=== PATIENT | female | born 1965 | race Two or more races ===

== ENCOUNTER 2019-07-26 08:33 | Day surgery (SDC) | payer MEDICARE, BC ==
[2019-07-26] MEDS ORDERED: Sodium Chloride 0.9% 1,000 ML IV SCH (08:45)
[2019-07-26] MEDS ORDERED: Midazolam 1 MG/ML 2 ML SDV ONE (09:34)
[2019-07-26] MEDS ORDERED: Propofol 200 MG/20 ML SDV ONE (09:34)
[2019-07-26] MEDS ORDERED: fentaNYL 100 MCG/2 ML SDV ONE (09:34)
--- NOTE | 2019-07-26 13:19 | PROC ---
DATE OF PROCEDURE: 07/26/2019 SURGEON: Tj Srivastava MD PROCEDURE: Colonoscopy. PREPROCEDURE DIAGNOSIS: History of colon polyps. POSTPROCEDURE DIAGNOSES: 1. History of colon polyps. 2. Internal and external hemorrhoids. 3. Ascending colon diverticulosis. DESCRIPTION OF PROCEDURE: Risks and goals of the procedure reviewed with the patient, and she gave informed consent to proceed including potential risks of perforation or uncontrolled bleeding requiring surgical intervention. She was brought back to the endoscopy room. Sedation and monitoring provided by the anesthesia service. She was placed in a left lateral decubitus position. Time-out was held to confirm right patient, right side, right procedure. After adequate sedation was achieved, digital rectal examination was performed which was remarkable for external hemorrhoids. No other palpable masses identified. Flexible colonoscope was placed and advanced all the way out through the colon to the cecum. The scope was slowly withdrawn back through the colon out of the cecum. In the ascending colon, she was noted to have scattered diverticulosis. The scope was brought back to the transverse colon and descending colon with no abnormalities identified. She was noted to have anastomosis from previous sigmoid colon resection. The scope was then brought into the rectum, retroflexed, and removed. No masses were identified, but she was noted to have internal hemorrhoids. The scope was then straightened and removed. No other mucosal polyps, masses, or lesions were seen, and the procedure was otherwise completed without complication. Tj Srivastava MD /[id number]
== END 2019-07-26 11:40 | disposition home or self-care (01) ==
LOC: JP.SDS 08:33
PROVIDERS: ATTEND Hospitalist
DX: Z12.11 Encounter for screening for malignant neoplasm of colon (principal); K64.8 Other hemorrhoids; K64.4 Residual hemorrhoidal skin tags; K57.30 Diverticulosis of large intestine without perforation or abscess without bleeding; K21.9 Gastro-esophageal reflux disease without esophagitis; G47.33 Obstructive sleep apnea (adult) (pediatric); E66.01 Morbid (severe) obesity due to excess calories; Z86.010 Personal history of colon polyps; Z88.7 Allergy status to serum and vaccine; Z88.8 Allergy status to other drugs, medicaments and biological substances; Z99.89 Dependence on other enabling machines and devices; Z68.41 Body mass index [BMI] 40.0-44.9, adult
CPT/HCPCS: G0121; J2250; J2704; J3010; J7030

== ENCOUNTER 2019-09-09 08:51 | Day surgery (SDC) | payer MEDICARE, BC ==
[~2019-09-09 08:51] MED LIST: Bacitracin Oint 28.35 GM Tube ONE; Bupivacaine 0.5% 50 ML MDV ONE; Lidocaine 1% with EPINEPHrine 1:100,000 50 ML MDV ONE; Midazolam 1 MG/ML 2 ML SDV ONE; Propofol 200 MG/20 ML SDV ONE; Sodium Chloride 0.9% 1,000 ML IV SCH; ceFAZolin 2 GM in Premix Bag 1 BAG IV ONE; fentaNYL 100 MCG/2 ML SDV ONE
[2019-09-09] MEDS ORDERED: Propofol 200 MG/20 ML SDV ONE ×3 (09:48→10:35)
--- NOTE | 2019-09-09 14:00 | OR ---
DATE OF PROCEDURE: 09/09/2019 SURGEON: Fer Delatorre MD PROCEDURES: Excision of multiple lesions: 1. Right elbow, approximately 3 mm, completely removed. 2. Left lateral leg. 3. Left medial leg. 4. Right Achilles heel area. These are most consistent with lipomas and cysts. COMPLICATIONS: None. MARKETING PERFORMANCE ANALYST: None. ANESTHESIA: MAC/local. PREOPERATIVE DIAGNOSIS: Cysts/lipomas. POSTOPERATIVE DIAGNOSIS: Cysts/lipomas. RISKS: Risks, benefits, alternatives, and limitations including, but not limited to infection, bleeding, chronic wounds, chronic pain, and injury to associated structures were explained to the patient, who wished to proceed. PROCEDURE IN DETAIL: The patient was placed in a supine position. The right elbow was addressed first. This was approximately a 5 mm incision that was carried down sharply. The cystic structure was excised without difficulty. Direct pressure was held for 1 minute. Wound was closed with 3-0 Vicryl and 4-0 Prolene in interrupted running fashion. The left posterior and lateral leg both were consistent with lipomas. These were both excised in the same manner using a #15 blade, then dissecting down to the lipoma type structures, which were small grape-like lipomas, sent to pathology. Both of these were closed with 3-0 Vicryl and 3-0 Prolene interrupted running fashion, and the right Achilles heel was excised in a similar manner of excision, which was 3 mm, excising with Metzenbaum scissors. Direct pressure for hemostasis, inspection, and then closure with 3-0 Vicryl and 4-0 Vicryl. All of these were injected with 1% lidocaine mixed with Marcaine pre procedure. The patient tolerated the procedure well. Fer Delatorre MD /[id number]
--- NOTE | 2019-09-20 12:57 | OR ---
DATE OF PROCEDURE: 09/09/2019 SURGEON: Fer Delatorre MD ADDENDUM: Of note, the sizes of lesions are described as right elbow with 3 mm x 3 mm. Left lateral leg size, this was grape-like multiple clusters of lipoma. Total size would be approximately 2 cm x 5 cm. This was noted to be deep to the fascia. The left medial leg had a similar size approximately 2.5 x 3 x 6 cm in total volume. This was also deep to the fascia, and the right Achilles heel area was approximately 5 mm x 5 mm, and this was superficially located within the fat area of the skin. Fer Delatorre MD /[id number]
== END 2019-09-09 12:02 | disposition home or self-care (01) ==
LOC: JP.SDS 08:51
PROVIDERS: ATTEND Surgery
DX: D17.21 Benign lipomatous neoplasm of skin and subcutaneous tissue of right arm (principal); D17.24 Benign lipomatous neoplasm of skin and subcutaneous tissue of left leg; D17.23 Benign lipomatous neoplasm of skin and subcutaneous tissue of right leg; E66.01 Morbid (severe) obesity due to excess calories; F41.9 Anxiety disorder, unspecified; K21.9 Gastro-esophageal reflux disease without esophagitis; Z68.41 Body mass index [BMI] 40.0-44.9, adult; Z88.7 Allergy status to serum and vaccine; Z88.8 Allergy status to other drugs, medicaments and biological substances; Z79.899 Other long term (current) drug therapy
CPT/HCPCS: 24075; 27634; 28043; 88304; J0690; J2250; J2704; J3010; J3490; J7030; A9270-GY

== ENCOUNTER 2020-02-29 06:29 | Day surgery (SDC) | payer MEDICARE, BC ==
[~2020-02-29 06:29] MED LIST changes: -Bacitracin Oint 28.35 GM Tube ONE; -Bupivacaine 0.5% 50 ML MDV ONE; +Bupivacaine 0.5%/EPINEPHrine 1:200,000 50 ML MDV ONE; -Lidocaine 1% with EPINEPHrine 1:100,000 50 ML MDV ONE; -Midazolam 1 MG/ML 2 ML SDV ONE; -Propofol 200 MG/20 ML SDV ONE; -Sodium Chloride 0.9% 1,000 ML IV SCH; -ceFAZolin 2 GM in Premix Bag 1 BAG IV ONE; -fentaNYL 100 MCG/2 ML SDV ONE
[2020-02-29] MEDS ORDERED: Dextrose 5%-Lactated Ringers 1,000 ML IV SCH (06:30)
[2020-02-29] MEDS ORDERED: Acetaminophen 500 MG Tab PO ONE (06:40)
[2020-02-29] MEDS ORDERED: Albuterol/Ipratropium 3.0-0.5 MG/3 ML Neb Soln NEB ONE (07:00)
[2020-02-29] MEDS ORDERED: fentaNYL 250 MCG/5 ML SDV ONE (07:07)
[2020-02-29] MEDS ORDERED: Neostigmine Methylsulfate 1 MG/ML 5 ML Syringe ONE (07:07)
[2020-02-29] MEDS ORDERED: Rocuronium 50 MG/5 ML Vial ONE (07:07)
[2020-02-29] MEDS ORDERED: Dexamethasone 4 MG/ML SDV ONE (07:07)
[2020-02-29] MEDS ORDERED: Ondansetron 4 MG/2 ML SDV ONE (07:07)
[2020-02-29] MEDS ORDERED: Propofol 200 MG/20 ML SDV ONE (07:07)
[2020-02-29] MEDS ORDERED: Glycopyrrolate 0.2 MG/ML 5 ML MDV ONE (07:07)
[2020-02-29] MEDS ORDERED: cefOXitin 2 GM in Sodium Chloride 0.9% 50 ML IV ONE (07:30)
[2020-02-29] MEDS ORDERED: cefOXitin 2 GM in Sodium Chloride 0.9% 100 ML IV ONE (07:30)
[2020-02-29] MEDS ORDERED: Ketamine 50 MG in Sodium Chloride 0.9% 49.5 ML IV SCH (08:00)
[2020-02-29] MEDS ORDERED: Ketamine 500 MG/5 ML MDV IV SCH (08:00)
[2020-02-29] MEDS ORDERED: hydrOXYzine HCL 100 MG/2 ML SDV IM ONE (08:52)
[2020-02-29] MEDS ORDERED: fentaNYL 100 MCG/2 ML SDV IVPUSH ONE (08:52)
[2020-02-29] MEDS ORDERED: oxyCODONE 5 MG Tab PO PRN (09:50)
[2020-02-29] MEDS ORDERED: Albuterol 8 GM Inhaler INH PRN (09:56)
[2020-02-29] MEDS ORDERED: Ondansetron 4 MG/2 ML SDV IVPUSH PRN (10:00)
[2020-02-29] MEDS ORDERED: HYDROmorphone 0.5 MG/0.5 ML Syringe IVPUSH PRN (10:00)
[2020-02-29] MEDS ORDERED: hydrOXYzine HCL 100 MG/2 ML SDV IM PRN (10:00)
[2020-02-29] MEDS ORDERED: HYDROmorphone 1 MG/ML Syringe IV PRN (10:00)
[2020-02-29] MEDS ORDERED: Naproxen 250 MG Tab PO SCH (10:30)
[2020-02-29] MEDS: Naproxen 250 MG Tab PO SCH ×2 (12:04→20:55)
[2020-02-29] MEDS: Dextrose 5%-Lactated Ringers 1,000 ML IV SCH ×2 (13:03→21:06)
[2020-02-29] MEDS: Acetaminophen 500 MG Tab PO SCH ×2 (14:04→19:37)
[2020-03-01] MEDS: Acetaminophen 500 MG Tab PO SCH ×2 (01:55→08:05)
[2020-03-01] MEDS: Naproxen 250 MG Tab PO SCH (08:05)
[2020-03-01] MEDS ORDERED: Loratadine 10 MG Tab PO SCH (09:00)
[2020-03-01] MEDS ORDERED: PRISTIQ PO SCH (09:00)
--- NOTE | 2020-03-02 13:36 | DISCH ---
ADMISSION DIAGNOSES: 1. Right lower quadrant abdominal pain. 2. Gastroesophageal reflux disease. 3. Morbid obesity, BMI 41. 4. Obstructive sleep apnea, on CPAP. 5. Major depression disorder. 6. Anxiety. 7. Fibromyalgia. 8. Diverticulitis. 9. Lipoma of lower extremities. 10.Former smoker. 11.Chronic low back pain. 12.History of migraine headaches. 13.History of colonic diverticulitis. DISCHARGE DIAGNOSES: Diagnostic laparoscopy with lysis of adhesions. 1. Repair of incarcerated incisional hernia. 2. Placement of Interceed mesh. POSTOPERATIVE DIAGNOSES: 1. Chronic right abdominal pain. 2. Extensive adhesions, lower left and mid abdomen. 3. Incarcerated incisional hernia just left to the midline, mid abdomen. Date of surgery, 02/29/2020. Surgeon: Ryder Ramirez MD. HISTORY: Fariha Cuevas is a 54-year-old female with chronic right abdominal pain. After preoperative evaluation and discussion of possible risks and possible complications, she wished to proceed with surgical procedure. HOSPITAL COURSE: Fariha had her surgery on 02/29/2020. She had no operative complications. On postoperative day #1, vital signs were stable, activity was good, pain was well managed, and she was able to be discharged to home. PHYSICAL EXAMINATION: GENERAL: Fariha Cuevas is a pleasant 54-year-old female. VITAL SIGNS: Height is 5 feet 6 inches. Weight is 258 pounds. TPR at 0654, 97.3, 57, 18, blood pressure 128/75. HEENT: Negative. NECK: Supple. HEART: Regular rate and rhythm. LUNGS: Clear. ABDOMEN: Dressings dry and intact. Abdominal binder is on. EXTREMITIES: Without peripheral edema. DISPOSITION: Discharged to home. CONDITION: Stable and improving. FOLLOWUP APPOINTMENT: Caitlin Johnson PA-C, on 03/08/2020, to call for a time. HOME MEDICATIONS: To restart them as she took them prior to admission, cider vinegar 300 mg oral daily, vitamin B12 1000 mcg oral daily, cyclobenzaprine 5 mg oral daily, Pristiq 75 mg oral daily, Tova 180 mg oral daily, flaxseed 1000 mg oral daily, ibuprofen 400 mg oral as directed, Probiotic 1 tablet oral daily, lidocaine 5% 1 patch topical, lysine 500 mg oral daily, magnesium oxide 400 mg oral twice daily, milk thistle 175 mg oral daily, naproxen 440 mg oral twice daily, papaya enzyme 1 tablet oral 3 times daily with meals, potassium gluconate 2 mEq oral daily, selenium 50 mcg oral as directed, triamcinolone acetonide or Nasacort 1 to 2 sprays nasally as needed for allergies, vitamin B complex 1 tablet daily, zinc 50 mg oral daily, hydroxyzine 25 mg oral every 6 hours, diphenhydramine 1 tablet oral as directed, ProAir inhaler 1 to 2 puffs every 4 hours p.r.n. shortness of breath, DuoNeb 3 mL inhalation every 6 hours p.r.n. shortness of breath, vitamin C 500 mg oral daily, Tums 500 mg as directed, CBD oil 17 mg topical as directed, and vitamin D3 2000 units oral daily. DIET: Usual diet as tolerated. Drink 8 to 10 glasses of water a day. ACTIVITY: No lifting greater than 10 pounds for 2 weeks. Other activity: Walk at least 6 times inside your home. Driving: Do not drive for 1 week. Shower/bathing: May shower. DISCHARGE INSTRUCTIONS: Notify provider if any fever, increased pain, swelling, redness, nausea, vomiting. Keep site clean and dry. Wear abdominal binder for 2 weeks and then as tolerated. SPECIAL INSTRUCTION: Use incentive spirometer 10 times every hour while awake.
--- NOTE | 2020-03-08 17:29 | OR ---
DATE OF PROCEDURE: 02/29/2020 SURGEON: Ryder Ramirez MD PREOPERATIVE DIAGNOSIS: Chronic right-sided abdominal pain. POSTOPERATIVE DIAGNOSES: Chronic right-sided abdominal pain associated with: 1. A. Extensive adhesions in lower abdomen. 2. B. Incarcerated incisional hernia. OPERATIVE PROCEDURES: Diagnostic laparoscopy with lysis of adhesions and: 1. A. Repair of incarcerated incisional hernia (23675). 2. B. Placement of Interceed mesh (86921). ANESTHESIA: General. ECOMMERCE MANAGER: Caitlin Johnson PA-C INDICATION FOR PROCEDURE: A 54-year-old female presenting with some chronic abdominal pain, this is predominantly in the right side of the midabdomen. Plan is to do diagnostic laparoscopy with lysis of adhesions and other procedures as indicated. Potential risks including bleeding, infection, injury to underlying viscera as well as significant likelihood that there may be some persistent pain postoperatively were gone over and the patient wishes to proceed. DETAILS OF PROCEDURE: The patient was taken to the operating room after general endotracheal anesthesia was induced, a Bowser catheter was inserted, and the abdomen was prepped and draped. The left upper quadrant transverse incision was made and peritoneal cavity entered under direct vision with an Optiview trocar, inflated to 15 mmHg pressure with CO2. Following this, two additional 5 mm trocars were placed in the left abdomen. The patient was noted initially to have quite extensive adhesions between the omentum and the anterior abdominal wall. These extended predominantly in the left and middle aspect of the abdomen with some extent of them on the right side. Apart from that, the patient was noted to have an incisional hernia located just to the left of the midline, somewhat above the level of the umbilicus. This contained some omentum which was dissected free and some of the peritoneal cavity apparently and the peritoneum was incised as well. Using laparoscopic suture passer, this hernia was then closed with transverse orientation with several 0 Vicryl sutures with mesh in these cases, so likely at some point, will be getting a sleeve gastrectomy which would need to have the camera port in that vicinity, and the mesh would likely result in significant dense adhesions making the approach somewhat difficult . Once the sutures were placed, Interceed mesh was then placed underneath the area of the hernia repair and from there down toward the pelvis to limit recurrent adhesion formation. The peritoneal cavity was then deflated. Bilateral transverse abdominis plane blocks had been placed prior to the removal of trocars and once the peritoneal cavity was deflated, the hernia sutures were then tied and the remaining trocar sites closed with 4-0 Vicryl skin stitch. A dressing was applied. The patient was taken to the recovery room in satisfactory condition. Physician insurance claims assistant, Caitlin Johnson, played an essential role in assisting in this case, helping to position the patient, retract structures as needed, and suturing and cutting sutures when indicated. Her presence improved the patient's safety and decreased the operative time. Ryder Ramirez MD /[id number]
== END 2020-03-01 09:20 | disposition home or self-care (01) ==
LOC: JP.SDS 06:29 → JP.MS 08:55 → JP.SDS 03-01 09:20
PROVIDERS: ATTEND Surgery
DX: K43.0 Incisional hernia with obstruction, without gangrene (principal); G47.33 Obstructive sleep apnea (adult) (pediatric); J45.909 Unspecified asthma, uncomplicated; K21.9 Gastro-esophageal reflux disease without esophagitis; E66.01 Morbid (severe) obesity due to excess calories; F41.9 Anxiety disorder, unspecified; F33.0 Major depressive disorder, recurrent, mild; Z68.41 Body mass index [BMI] 40.0-44.9, adult; Z79.899 Other long term (current) drug therapy; Z87.891 Personal history of nicotine dependence; Z88.7 Allergy status to serum and vaccine; Z88.8 Allergy status to other drugs, medicaments and biological substances; Z90.49 Acquired absence of other specified parts of digestive tract
CPT/HCPCS: 49655; 88302; 94640; 94762; A9270; J0171; J0694; J1100; J2405; J2704; J2710; J2795; J3010; J3410; J3490; J7050; J7121; J7620-GY